=== PATIENT | female | born 1980 | race Caucasian/White ===

== ENCOUNTER 2018-09-01 07:50 | Emergency (ER) | payer MEDICAID ==
[2018-09-01] MEDS ORDERED: Pantoprazole 40 MG Vial IVPUSH ONE (08:14)
[2018-09-01] MEDS ORDERED: Sodium Chloride 0.9% 10 ML Syringe FLUSH PRN (08:14)
[2018-09-01] MEDS ORDERED: Famotidine 20 MG/2 ML SDV IVPUSH ONE (08:14)
[2018-09-01] MEDS ORDERED: Ondansetron 4 MG/2 ML SDV IVPUSH ONE (08:14)
[2018-09-01] MEDS ORDERED: Lactated Ringers 1,000 ML IV ONE (08:14)
--- NOTE | 2018-09-01 08:14 | EDM.PDOC ---
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 She also has a 10/10 bilateral frontal migraine headache. Note that her migraine headache started at about 12:30 p.m. yesterday with some secondary nausea and 2 episodes of emesis yesterday. Her abdominal complaints started early yesterday afternoon with fever of 103-104 at 01:30 a.m. this morning. She has not taken any medications for her symptoms to this point. Her abdominal complaints are similar to previous episodes of UTI, however she denies colic, gross hematuria, or true UTI symptoms. The patient denies any chest pain/pressure, heart flutter, dizziness, orthostasis, orthopnea , diaphoresis, paresthesias, recent decreased exercise tolerance, or any other anginal-type symptoms. No recent history of other abdominal pain, heartburn, diarrhea, melena, gross hematochezia, or any food intolerance, including fatty foods, etc., although she has not had a bowel movement for 3 days. The patient also denies any recent cough, wheezing, dyspnea, etc. known exposure to infection, food poisoning, etc. . Note current amenorrhea secondary to IUD. Stable mild whitish vaginal discharge consistent with yeast with no other significant vaginal drainage, spotting, etc. Onset: Gradual Onset Date: 08/30/18 Duration: Constant, Getting Worse Location: Reports: Head, Abdomen. Denies: Face, Neck, Chest, Back, Pelvis, Upper Extremity, Left, Upper Extremity, Right, Radiates to Quality: Reports: Same as Previous Episode, Sharp Severity: Severe Improves with: Reports: None Worsens with: Reports: None Context: Reports: Other (As above). Denies: Sick Contact, Trauma Associated Symptoms: Reports: Fever/Chills, Headaches, Nausea/Vomiting. 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 Denies: Allergic Rhinitis, Cataract, Glaucoma, Hard of Hearing, Macular Degeneration, Otitis Media, Retinal Detachment Other HEENT History: The patient wears glasses. Left-sided mastoiditis in July 1986. Cardiovascular History: Reports: Hypertension, Other (See Below). Denies: Afib , Aneurysm, Arrhythmia, Blood Clots/VTE/DVT, CAD, Heart Murmur, High Cholesterol , PVD, Syncope Other Cardiovascular History: Hypertension not under current medical therapy although previously. She does not know her cholesterol status. Respiratory History: Reports: Intubation, Previous. Denies: Asthma, Bronchitis , Recurrent, COPD, Intubation, Difficult, PE, Pneumothorax, Sleep Apnea Gastrointestinal History: Reports: None. Denies: Celiac Disease, Cholelithiasis , Chronic Constipation, Chronic Diarrhea, Gastritis, GERD, GI Bleed, Hiatal Hernia, Inflammatory Bowel Disease, Irritable Bowel Syndrome, Jaundice, Other ( See Below) Genitourinary History: Reports: None, UTI, Recurrent. Denies: Acute Renal Failure, Chronic Renal Insuffiency, Renal Calculus, Retention, Urinary, STD, Urinary Incontinence MERCHANDISING REPRESENTATIVE History: Reports: , Therapeutic : 5 Para: 4 LMP (Approximate): Other (See Below) Other MERCHANDISING REPRESENTATIVE History: Elective SAB during first trimester. Current amenorrhea secondary to IUD placement. Full term without complications during pregnancies or deliveries Musculoskeletal History: Reports: None. Denies: Amputation, Arthritis, Back Pain, Chronic, Fracture, Fibromyalgia, Gout, Muscular Dystrophy, Neck Pain, Chronic, Osteoarthritis, SLE Neurological History: Reports: Headaches, Chronic, Migraines. Denies: Cerebral Aneurysms, Concussion, CVA, Head Trauma, MS, Parkinson's, Seizure, TIA, Vertigo Psychiatric History: Denies: Abuse, Victim of, ADD, ADHD, Addiction, Anxiety, Depression, Psych Hospitalization(s), PTSD, Suicide Attempt, Suicidal Ideation Endocrine/Metabolic History: Reports: Hypothyroidism. Denies: Diabetes, Gestational, Diabetes, Type I, Diabetes, Type II, Diabetes Mellitus, Type 3c, IDDM, Multinodular Thyroid Hematologic History: Reports: None. Denies: Anemia, Blood Transfusion(s), Iron Deficiency Immunologic History: Reports: None. Denies: AIDS, HIV, SLE Oncologic (Cancer) History: Reports: Cervix, Other (See Below). Denies: Basal Cell Carcinoma, Breast, Hodgkin's Lymphoma, Leukemia, Lymphoma, Malignant Melanoma, Non-Hodgkin's Lymphoma, Ovarian, Squamous Cell Carcinoma, Uterine Other Oncologic History: Cervical dysplasia in 2012 requiring procedure as below. Dermatologic History: Reports: None. Denies: Eczema, Psoriasis - Infectious Disease History Infectious Disease History: Reports: Chicken Pox. Denies: C-Difficile, Measles , Meningitis, Mononucleosis, MRSA, Mumps, Pertussis (Whooping Cough), Rheumatic Fever, Rubella, Scarlet Fever, Shingles, TB, VRE - Past Surgical History Head Surgeries/Procedures: Reports: None HEENT Surgical History: Reports: Tonsillectomy, Other (See Below). Denies: Adenoidectomy, Cataract Surgery, Eye Surgery, Laser Surgery, LASIK, Myringotomy w Tube(s), Naso-Sinus Surgery, Oral Surgery Other HEENT Surgeries/Procedures: Tonsillectomy on 08/10/1999. Cardiovascular Surgical History: Reports: None. Denies: Varicose Respiratory Surgical History: Reports: None. Denies: Thoracentesis GI Surgical History: Denies: Appendectomy, Cholecystectomy, Colonoscopy, EGD, Hernia, Abdominal, Hernia, Inguinal, Hernia Repair/Other Female Surgical History: Reports: D&C, Dilitation & Evacuation, LEEP, Other ( See Below). Denies: Breast Biopsy, Hysterectomy, Oophorectomy, Salpingo- Oophorectomy, Tubal Ligation Other Female Surgeries/Procedures: IUD placement in 2014. LEEP in 2011. Endocrine Surgical History: Reports: None. Denies: Thyroid Biopsy Neurological Surgical History: Reports: None. Denies: C-Spine, Discectomy, Laminectomy, Lumbar Spine, Sacral Spine, Thoracic Spine, Vertebroplasty Musculoskeletal Surgical History: Reports: None. Denies: Arthroscopic Procedure , Carpal Tunnel, Ganglion Cyst, Joint Replacement, ORIF, Shoulder Surgery Oncologic Surgical History: Reports: None Dermatological Surgical History: Reports: None - Past Imaging History Past Imaging History: Reports: CAT Scan (CT of the head on 08/02/1986.) Social & Family History - Family History Cardiac: Reports: High Cholesterol, Hypertension, Other (See Below). Denies: Afib, Aneurysm, Arrhythmia, Blood Clots/VTE/DVT, Syncope Other Cardiac Family History: Maternal grandfather with possible unknown type of heart disease. Father with hypertension. Mother with hyperlipidemia Respiratory: Reports: COPD, Other (See Below). Denies: Asthma, Pneumothorax, Sleep Apnea Other Respiratory Family Hisory: Paternal grandmother with COPD with history of tobacco use. GI: Reports: None. Denies: Celiac Disease, Cholelithiasis, Colon Polyps, GERD, GI bleed, Inflammatory Bowel Disease, Irritable Bowel Syndrome, PUD Endocrine/Metabolic: Reports: Diabetes, type II, Hypothyroidism, IDDM, Other ( See Below) Other Endocrine/Metabolic Family History: Sister and father with hypothyroidism. Paternal grandfather with with IDDM. - Tobacco Use Smoking Status *Q: Current Every Day Smoker Tobacco Use Within Last Twelve Months: Cigarettes Years of Tobacco use: 19 Packs/Tins Daily: 1 Packs/Tins Daily Comment: Started Smoking at age 19. Used Tobacco, but Quit: No Smoking Cessation Information Provided To Patient: Yes Second Hand Smoke Exposure: No Second Hand Smoke Education Provided: No - Caffeine Use Caffeine Use: Reports: Energy Drinks (3 per week), Soda (1 soda every 2 weeks.) . Denies: Coffee, Tea - Alcohol Use Alcohol Use History: Yes Days Per Week of Alcohol Use: 3 Number of Drinks Per Day: 5 Number of Drinks Per Day Comment: Usually beer. No previous DWIs, problems with alcohol abuse, etc. Total Drinks Per Week: 15 Alcohol Use in Last Twelve Months: Yes - Recreational Drug Use Recreational Drug Use: No Drug Use in Last 12 Months: No Recreational Drug Type: Denies: Amphetamines (Speed), Cocaine, Heroin, Inhalants (Glues, Solvents, Aerosols), LSD (Acid), Marijuana/Hashish, Methamphetamine, Morphine, Oxycodone - Sexual History Sexual History: Reports: Sexually Active - Living Situation & Occupation Living situation: Reports: (2015, 4 children), with Family (Children) Occupation: Employed ([employer] in [place]) ED ROS GENERAL - Review of Systems Review Of Systems: ROS reveals no pertinent complaints other than HPI. ED EXAM, GENERAL - Physical Exam Exam: See Below Exam Limited By: No Limitations General Appearance: Alert, WD/WN, No Apparent Distress Eye Exam: Bilateral Eye: EOMI, Normal Inspection (Patient wearing glasses. No nystagmus), PERRL, Other (Borderline mild bilateral exophthalmos) Ears: Normal External Exam, Normal Canal, Hearing Grossly Normal, Normal TMs Nose: Normal Inspection, Normal Mucosa, No Blood Throat/Mouth: Normal Inspection, Normal Lips, Normal Teeth, Normal Gums, Normal Oropharynx, Normal Voice, No Airway Compromise. No: Dysphagia, Perioral Cyanosis Head: Atraumatic, Normocephalic. No: Facial Swelling, Facial Tenderness, Sinus Tenderness Neck: Normal Inspection, Supple, Non-Tender, Full Range of Motion. No: Lymphadenopathy (L), Lymphadenopathy (R), Thyromegaly Respiratory/Chest: No Respiratory Distress, Lungs Clear, Normal Breath Sounds, No Accessory Muscle Use, Chest Non-Tender. No: Pleural Rub, Retractions Cardiovascular: Normal Peripheral Pulses, No Edema, No Gallop, No JVD, No Murmur , No Rub, Tachycardia (Mild tachycardia with regular rhythm). No: Gallop/S3, Gallop/S4, Friction Rub Peripheral Pulses: 2+: Radial (L), Radial (R), Dorsalis Pedis (L), Dorsalis Pedis (R) GI/Abdominal: Normal Bowel Sounds, No Organomegaly, No Distention, No Abnormal Bruit, No Mass, Pelvis Stable, Tender (Mild bilateral lower quadrants). No: Guarding, Rigid, Rebound, Mass (Female) Exam: Deferred Rectal (Female) Exam: Deferred Back Exam: Normal Inspection, Full Range of Motion. No: CVA Tenderness (L), CVA Tenderness (R), Muscle Spasm Extremities: Normal Inspection, Normal Range of Motion, Non-Tender, No Pedal Edema, Normal Capillary Refill. No: Dolores's Sign Neurological: Alert, Oriented, CN II-XII Intact, Normal Cognition, Normal Gait, Normal Reflexes (Negative Babinski's), No Motor/Sensory Deficits Psychiatric: Normal Affect, Normal Mood Skin Exam: Warm, Dry, Intact, Normal Color, No Rash, Stud(s), Tattoo(s). No: Diaphoretic, Wound/Incision Lymphatic: No Adenopathy Course - Vital Signs Last Recorded V/S: Last Vital Signs Temp 37.4 C 09/01/18 07:55 Pulse 115 H 09/01/18 07:55 Resp 17 09/01/18 09:30 BP 155/74 H 09/01/18 09:30 Pulse Ox 100 09/01/18 09:30 Vital Signs - 24 hr 09/01/18 09/01/18 09/01/18 07:55 08:08 08:30 Temperature [ 37.4 C Temporal] Pulse, 115 H Peripheral [ Pulse Oximetry] Respiratory 18 20 20 Rate Blood Pressure 148/93 H 145/82 H 157/90 H [Right Upper Arm] O2 Sat by Pulse 100 100 100 Oximetry 09/01/18 09/01/18 09/01/18 09:00 09:15 09:30 Temperature [ Temporal] Pulse, Peripheral [ Pulse Oximetry] Respiratory 19 18 17 Rate Blood Pressure 155/77 H 149/76 H 155/74 H [Right Upper Arm] O2 Sat by Pulse 100 100 100 Oximetry - Orders/Labs/Meds Orders: Active Orders 24 hr Category Date Time Status Cardiac Monitoring [RC] . DIRECTED Care 09/01/18 08:16 Active Influenza Vaccine Charge [RC] .DISCHARGE Care 09/01/18 09:11 Active Peripheral IV Care [RC] . DIRECTED Care 09/01/18 08:14 Active Nothing Per Oral Diet [DIET] Diet 09/01/18 Breakfast Active Abdomen Series w Chest 1V [CR] Stat Exams 09/01/18 08:14 Taken CULTURE BLOOD [BC] Stat Lab 09/01/18 08:26 Received CULTURE BLOOD [BC] Stat Lab 09/01/18 08:32 Received CULTURE URINE [RM] Stat Lab 09/01/18 08:14 Ordered Sodium Chloride 0.9% [Saline Flush] Med 09/01/18 08:14 Active 10 ml FLUSH ASDIRECTED PRN Blood Culture x2 Reflex Set [OM.PC] Urgent Oth 09/01/18 08:14 Ordered Obtain Past Medical Record [OM.PC] Urgent Oth 09/01/18 08:14 Active Peripheral IV Insertion Adult [OM.PC] Stat Oth 09/01/18 08:14 Ordered Resuscitation Status Stat Resus Stat 09/01/18 08:14 Ordered Medication Orders Sodium Chloride (Saline Flush) 10 ml FLUSH ASDIRECTED PRN PRN Reason: Keep Vein Open Last Admin: 09/01/18 08:28 Dose: 10 ml Labs: Laboratory Tests 09/01/18 09/01/18 09/01/18 Range/Units 08:15 08:26 08:26 WBC 9.6 (4.0-10.2) K/uL RBC 4.53 (3.77-5.09) M/uL Hgb 15.1 (11.7-15.5) g/dL Hct 42.6 (34.0-46.0) % MCV 94.0 (84.0-98.0) fL MCH 33.3 (28.2-33.3) pg MCHC 35.4 (31.7-36.0) g/dL RDW 12.1 (11.2-14.1) % Plt Count 163 D (150-350) K/uL Neut % (Auto) 87.7 H (45.0-80.0) % Lymph % (Auto) 4.8 L (10.0-50.0) % [place] % (Auto) 7.3 (2.0-14.0) % Eos % (Auto) 0.0 (0.0-5.0) % Baso % (Auto) 0.2 (0.0-2.0) % Neut # (Auto) 8.39 H (1.40-7.00) K/uL Lymph # (Auto) 0.46 L (0.50-3.50) K/uL [place] # (Auto) 0.70 (0.00-1.00) K/uL Eos # (Auto) 0.00 (0.00-0.50) K/uL Baso # (Auto) 0.02 (0.00-0.20) K/uL PT (9.5-12.0) SEC INR APTT (21.0-31.3) SEC Sodium (136-145) mmol/L Potassium (3.5-5.1) mmol/L Chloride (98-107) mmol/L Carbon Dioxide (21.0-32.0) mmol/L BUN (7-18) mg/dL Creatinine (0.51-1.17) mg/dL Est Cr Clr Drug Dosing mL/min Estimated GFR (MDRD) mL/min Glucose (74-106) mg/dL Lactic Acid (0.4-2.0) mmol/L Uric Acid (2.6-7.2) mg/dL Calcium (8.5-10.1) mg/dL Magnesium (1.8-2.4) mg/dL Total Bilirubin (0.2-1.0) mg/dL AST (15-37) U/L ALT (12-78) U/L Alkaline Phosphatase (46-116) IU/L Total Protein (6.4-8.2) g/dL Albumin (3.4-5.0) g/dL Amylase 26 (25-115) U/L Lipase (73-393) U/L HCG, Qual (NEGATIVE) Specimen Type Urinvoid Urine Color Yellow Urine Appearance Slightly cloudy Urine pH 5.5 (5.0-9.0) Ur Specific [place] <= 1.005 (1.005-1.030) Urine Protein Negative (NEGATIVE) mg/dL Urine Glucose (UA) Negative (NEGATIVE) mg/dL Urine Ketones 40 H (NEGATIVE) mg/dL Urine Occult Blood Small H (NEGATIVE) Urine Nitrite Positive H (NEGATIVE) Urine Bilirubin Negative (NEGATIVE) Urine Urobilinogen 0.2 (0.2-1.0) E.U./dL Ur Leukocyte Esterase Small H (NEGATIVE) Urine RBC Not seen /HPF Urine WBC 10-20 H /HPF Ur Epithelial Cells Moderate H /LPF Urine Bacteria Many H (NONE TO FEW) /HPF 09/01/18 09/01/18 09/01/18 Range/Units 08:26 08:26 08:26 WBC (4.0-10.2) K/uL RBC (3.77-5.09) M/uL Hgb (11.7-15.5) g/dL Hct (34.0-46.0) % MCV (84.0-98.0) fL MCH (28.2-33.3) pg MCHC (31.7-36.0) g/dL RDW (11.2-14.1) % Plt Count (150-350) K/uL Neut % (Auto) (45.0-80.0) % Lymph % (Auto) (10.0-50.0) % [place] % (Auto) (2.0-14.0) % Eos % (Auto) (0.0-5.0) % Baso % (Auto) (0.0-2.0) % Neut # (Auto) (1.40-7.00) K/uL Lymph # (Auto) (0.50-3.50) K/uL [place] # (Auto) (0.00-1.00) K/uL Eos # (Auto) (0.00-0.50) K/uL Baso # (Auto) (0.00-0.20) K/uL PT 10.7 (9.5-12.0) SEC INR 1.0 APTT 31.6 H (21.0-31.3) SEC Sodium 132 L (136-145) mmol/L Potassium 3.1 L (3.5-5.1) mmol/L Chloride 95 L (98-107) mmol/L Carbon Dioxide 26.1 (21.0-32.0) mmol/L BUN 5 L (7-18) mg/dL Creatinine 0.82 (0.51-1.17) mg/dL Est Cr Clr Drug Dosing 75.01 mL/min Estimated GFR (MDRD) > 60 mL/min Glucose 103 (74-106) mg/dL Lactic Acid 0.8 (0.4-2.0) mmol/L Uric Acid 2.7 (2.6-7.2) mg/dL Calcium 9.1 (8.5-10.1) mg/dL Magnesium 1.5 L (1.8-2.4) mg/dL Total Bilirubin 0.6 (0.2-1.0) mg/dL AST 14 L (15-37) U/L ALT 24 (12-78) U/L Alkaline Phosphatase 58 (46-116) IU/L Total Protein 8.0 (6.4-8.2) g/dL Albumin 4.0 (3.4-5.0) g/dL Amylase (25-115) U/L Lipase 72 L (73-393) U/L HCG, Qual (NEGATIVE) Specimen Type Urine Color Urine Appearance Urine pH (5.0-9.0) Ur Specific [place] (1.005-1.030) Urine Protein (NEGATIVE) mg/dL Urine Glucose (UA) (NEGATIVE) mg/dL Urine Ketones (NEGATIVE) mg/dL Urine Occult Blood (NEGATIVE) Urine Nitrite (NEGATIVE) Urine Bilirubin (NEGATIVE) Urine Urobilinogen (0.2-1.0) E.U./dL Ur Leukocyte Esterase (NEGATIVE) Urine RBC /HPF Urine WBC /HPF Ur Epithelial Cells /LPF Urine Bacteria (NONE TO FEW) /HPF 09/01/18 Range/Units 08:26 WBC (4.0-10.2) K/uL RBC (3.77-5.09) M/uL Hgb (11.7-15.5) g/dL Hct (34.0-46.0) % MCV (84.0-98.0) fL MCH (28.2-33.3) pg MCHC (31.7-36.0) g/dL RDW (11.2-14.1) % Plt Count (150-350) K/uL Neut % (Auto) (45.0-80.0) % Lymph % (Auto) (10.0-50.0) % [place] % (Auto) (2.0-14.0) % Eos % (Auto) (0.0-5.0) % Baso % (Auto) (0.0-2.0) % Neut # (Auto) (1.40-7.00) K/uL Lymph # (Auto) (0.50-3.50) K/uL [place] # (Auto) (0.00-1.00) K/uL Eos # (Auto) (0.00-0.50) K/uL Baso # (Auto) (0.00-0.20) K/uL PT (9.5-12.0) SEC INR APTT (21.0-31.3) SEC Sodium (136-145) mmol/L Potassium (3.5-5.1) mmol/L Chloride (98-107) mmol/L Carbon Dioxide (21.0-32.0) mmol/L BUN (7-18) mg/dL Creatinine (0.51-1.17) mg/dL Est Cr Clr Drug Dosing mL/min Estimated GFR (MDRD) mL/min Glucose (74-106) mg/dL Lactic Acid (0.4-2.0) mmol/L Uric Acid (2.6-7.2) mg/dL Calcium (8.5-10.1) mg/dL Magnesium (1.8-2.4) mg/dL Total Bilirubin (0.2-1.0) mg/dL AST (15-37) U/L ALT (12-78) U/L Alkaline Phosphatase (46-116) IU/L Total Protein (6.4-8.2) g/dL Albumin (3.4-5.0) g/dL Amylase (25-115) U/L Lipase (73-393) U/L HCG, Qual Negative (NEGATIVE) Specimen Type Urine Color Urine Appearance Urine pH (5.0-9.0) Ur Specific [place] (1.005-1.030) Urine Protein (NEGATIVE) mg/dL Urine Glucose (UA) (NEGATIVE) mg/dL Urine Ketones (NEGATIVE) mg/dL Urine Occult Blood (NEGATIVE) Urine Nitrite (NEGATIVE) Urine Bilirubin (NEGATIVE) Urine Urobilinogen (0.2-1.0) E.U./dL Ur Leukocyte Esterase (NEGATIVE) Urine RBC /HPF Urine WBC /HPF Ur Epithelial Cells /LPF Urine Bacteria (NONE TO FEW) /HPF Urine specimen set up for culture and sensitivity. Meds: Medications Generic Name Dose Route Start Last Admin Trade Name Freq PRN Reason Stop Dose Admin Sodium Chloride 10 ml 09/01/18 08:14 09/01/18 08:28 Saline Flush FLUSH 10 ml ASDIRECTED PRN Administration Keep Vein Open Discontinued Medications Generic Name Dose Route Start Last Admin Trade Name Freq PRN Reason Stop Dose Admin Famotidine 40 mg 09/01/18 08:14 09/01/18 08:27 Pepcid IVPUSH 09/01/18 08:15 40 mg ONETIME ONE Administration Lactated Ringer's 1,000 mls @ 999 mls/hr 09/01/18 08:14 09/01/18 08:27 Ringers, Lactated IV 09/01/18 09:14 999 mls/hr .BOLUS ONE Administration Influenza Virus Vaccine 1 each 09/01/18 09:11 Pharmacy To Dose - Influenza Vaccine IM 09/01/18 09:12 ONETIME ONE Influenza Virus Vaccine 60 mcg 09/01/18 10:00 Fluzone Quad [id number] Syringe IM 09/01/18 10:01 .ONCE ONE Magnesium Oxide 400 mg 09/01/18 09:10 09/01/18 09:31 Magnesium Oxide PO 09/01/18 09:11 400 mg ONETIME ONE Administration Ondansetron HCl 4 mg 09/01/18 08:14 09/01/18 08:27 Zofran IVPUSH 09/01/18 08:15 4 mg ONETIME ONE Administration Pantoprazole Sodium 40 mg 09/01/18 08:14 09/01/18 08:27 Protonix Iv IVPUSH 09/01/18 08:15 40 mg ONETIME ONE Administration Potassium Chloride 40 meq 09/01/18 09:10 09/01/18 09:31 Klor-Con M20 PO 09/01/18 09:11 40 meq ONETIME ONE Administration - Radiology Interpretation Free Text/Narrative:: telemetry monitor initially showed sinus tachycardia in the 110s with no ectopy or arrhythmia. Improvement of heart rate to the 100s after IV fluids given in the emergency room. Departure - Departure Time of Disposition: 10:12 Disposition: Home, Self-Care 01 Condition: Good Clinical Impression: Hypothyroidism (acquired), Tobacco abuse counseling Migraine Qualifiers: Migraine type: without aura Status migrainosus presence: without status migrainosus Intractability: not intractable Qualified Code(s): G43.009 - Migraine without aura, not intractable, without status migrainosus Urinary tract infection Qualifiers: Urinary tract infection type: acute cystitis Hematuria presence: without hematuria Qualified Code(s): N30.00 - Acute cystitis without hematuria - Discharge Information *PRESCRIPTION DRUG MONITORING PROGRAM REVIEWED*: Not Applicable *COPY OF PRESCRIPTION DRUG MONITORING REPORT IN PATIENT [place]RA: Not Applicable Prescriptions: Nitrofurantoin Monohyd/M-Cryst [Macrobid 100 mg Capsule] 100 mg PO BID #20 capsule Instructions: Urinary Tract Infection, Adult, [id number] Referrals: Erinn Lopez, RESEARCH MANUFACTURING OPERATOR [Primary Care Provider] - Forms: ED Department Discharge, ED Return to Work/School Form Additional Instructions: 1. Followup with your regular provider in 10-14 days as directed with recommended repeat urine tests as below, TSH, free T3, free T4, magnesium level , and basic metabolic panel.. Bring these discharge instructions with you to that visit. 2. Urine tests should be repeated at follow up visit with possible repeat urine culture,etc. at that time. Today's urine culture is pending with results in about 2-3 days. We will call you, if we need to change your therapy. 3. Tylenol 650 mg by mouth every 4 hours and/or OTC ibuprofen 2-3 tabs by mouth every 6 hours with food as directed./needed. You may stagger these medications for 48-72 hours only, which essentially means that you are receiving a pain medication about every 2 hours. 4. Work excuse- See Form 5. [place] diet including encouragement of oral fluids such as sports drinks, etc. for 24-48 hours as directed. Advance to regular diet as tolerated thereafter. 6. Ice packs to head and neck, dark and quiet room, etc. as directed until headache resolves. 7. Discuss recurrent migraine headaches with your regular provider at follow- up with consideration of further workup, including CT scan of the head, preventative medicine, etc. as discussed. 8. Encourage oral fluids, including daily cranberry use, etc.as directed. 9. Stop all tobacco use PARESH as directed/per provided information and consider contacting Quit LIne, etc.. 10. Immediately after this visit verify that your cellular telephone's voicemail has been activated and is empty. Also verify that your home telephone 's answering machine is operating properly and has space to receive messages. Note that it is sometimes necessary for us to be able to contact you at a later date to discuss your medical care. 11. Please remember that we are ALWAYS here for you and want to answer any questions you may have. Feel free to call the hospital any time and we call you back PARESH. - Problem List & Annotations (1) Urinary tract infection SNOMED Code(s): 86452145 Code(s): N39.0 - URINARY TRACT INFECTION, SITE NOT SPECIFIED Status: Acute Priority: High Current Visit: No Onset Date: ~09/01/18 Annotation/ Comment:: Initiate Macrobid therapy at discharge. IV fluids given in the emergency room secondary to mild tachycardia and recent fever with improvement as above. Urine specimen set up for culture and sensitivity. Patient counseled on avoidance of oral intercourse, etc. with consideration of further workup, etc. depending on her clinical course. Close follow-up by regular provider. She did not wish to have Pyridium. Qualifiers: Urinary tract infection type: acute cystitis Hematuria presence: without hematuria Qualified Code(s): N30.00 - Acute cystitis without hematuria (2) Hypothyroidism (acquired) SNOMED Code(s): 671704372 Code(s): E03.9 - HYPOTHYROIDISM, UNSPECIFIED Status: Chronic Priority: Medium Current Visit: No Annotation/Comment:: Currently under therapy over problems regulating her therapy by her regular provider with elevated TSH one month ago. She is scheduled for a repeat TSH later this month with recommendation of additional free T3 and free T4. Note borderline exophthalmus. Continue to observe closely by her regular provider. (3) Migraine SNOMED Code(s): 44729416 Code(s): G43.909 - MIGRAINE, UNSP, NOT INTRACTABLE, WITHOUT STATUS MIGRAINOSUS Status: Acute Priority: High Current Visit: No Onset Date: 08/31/18 Annotation/Comment:: Mild headache exacerbation as above. Currently gets her headaches on an every 2 week basis with no previous neurological consultation, CT scan of the head, etc. Continue to observe closely by her regular provider with consideration of prophylactic therapy, workup, etc.. Symptomatic relief for now with no IV Toradol therapy for now per patient's request. Qualifiers: Migraine type: without aura Status migrainosus presence: without status migrainosus Intractability: not intractable Qualified Code(s): G43.009 - Migraine without aura, not intractable, without status migrainosus (4) Tobacco abuse counseling SNOMED Code(s): 011309048, 733671295, 187416503 Code(s): Z71.6 - TOBACCO ABUSE COUNSELING Status: Chronic Priority: Medium Current Visit: No Annotation/Comment:: Tobacco cessation strongly encouraged with patient already having tobacco cessation information at home. (5) Hypokalemia SNOMED Code(s): 71204743 Code(s): E87.6 - HYPOKALEMIA Status: Acute Priority: Medium Current Visit: No Onset Date: 09/01/18 Annotation/Comment:: Lactated Ringer's given in the emergency room with additional hyponatremia and additional oral potassium chloride prior to discharge. (6) Hypomagnesemia SNOMED Code(s): 280820636 Code(s): E83.42 - HYPOMAGNESEMIA Status: Acute Priority: Medium Current Visit: No Onset Date: 09/01/18 Annotation/Comment:: Magnesium oxide given in the emergency room. Close follow-up by regular provider. Observe for now with sports drinks, etc. encouraged as per discharge instructions. - Problem List Review Problem List Initiated/Reviewed/Updated: Yes - My Orders Last 24 Hours: My Active Orders 09/01/18 08:14 Peripheral IV Care [RC] . DIRECTED Abdomen Series w Chest 1V [CR] Stat CULTURE URINE [RM] Stat Sodium Chloride 0.9% [Saline Flush] 10 ml FLUSH ASDIRECTED PRN Blood Culture x2 Reflex Set [OM.PC] Urgent Obtain Past Medical Record [OM.PC] Urgent Peripheral IV Insertion Adult [OM.PC] Stat Resuscitation Status Stat 09/01/18 08:16 Cardiac Monitoring [RC] . DIRECTED 09/01/18 08:26 CULTURE BLOOD [BC] Stat 09/01/18 08:32 CULTURE BLOOD [BC] Stat 09/01/18 09:11 Influenza Vaccine Charge [RC] .DISCHARGE 09/01/18 Breakfast Nothing Per Oral Diet [DIET] - Assessment/Plan Last 24 Hours: My Active Orders 09/01/18 08:14 Peripheral IV Care [RC] . DIRECTED Abdomen Series w Chest 1V [CR] Stat CULTURE URINE [RM] Stat Sodium Chloride 0.9% [Saline Flush] 10 ml FLUSH ASDIRECTED PRN Blood Culture x2 Reflex Set [OM.PC] Urgent Obtain Past Medical Record [OM.PC] Urgent Peripheral IV Insertion Adult [OM.PC] Stat Resuscitation Status Stat 09/01/18 08:16 Cardiac Monitoring [RC] . DIRECTED 09/01/18 08:26 CULTURE BLOOD [BC] Stat 09/01/18 08:32 CULTURE BLOOD [BC] Stat 09/01/18 09:11 Influenza Vaccine Charge [RC] .DISCHARGE 09/01/18 Breakfast Nothing Per Oral Diet [DIET] Assessment:: As above Plan: As above. Extensive precautions were given to the patient, who is in agreement with the treatment plan. See Patient Instructions for further treatment and plan. Influenza booster given prior to discharge.
[2018-09-01 08:55] LABS: CHLORIDE,CL 95 mmol/L (98-107); SODIUM,NA 132 mmol/L (136-145)
[2018-09-01] MEDS ORDERED: Potassium Chloride 20 MEQ Tab.ER PO ONE (09:10)
[2018-09-01] MEDS ORDERED: Magnesium Oxide 400 MG Tab PO ONE (09:10)
== END 2018-09-01 10:10 | disposition home or self-care (01) ==
LOC: LL.ED 07:50
DX: G43.009 Migraine without aura, not intractable, without status migrainosus (principal); N30.00 Acute cystitis without hematuria; I10 Essential (primary) hypertension; E03.9 Hypothyroidism, unspecified; Z71.6 Tobacco abuse counseling; Z88.0 Allergy status to penicillin; F17.210 Nicotine dependence, cigarettes, uncomplicated
CPT/HCPCS: 36415; 74022; 80053; 81001; 82150; 83605; 83690; 83735; 84550; 84703; 85025; 85610; 85730; 87040; 87086; 87088; 87186; 90686; 96361; 96374; 96375; 99284-25; A9270-GY; C9113; G0008; J2405; J3490; J7120

== ENCOUNTER 2018-11-08 09:37 | Emergency (ER) | payer MEDICAID ==
--- NOTE | 2018-11-08 10:15 | EDM.PDOC ---
ED HPI GENERAL MEDICAL PROBLEM - General Chief Complaint: General Stated Complaint: Hematoma Time Seen by Provider: 11/08/18 09:50 Source of Information: Reports: Patient History Limitations: Reports: No Limitations - History of Present Illness INITIAL COMMENTS - FREE TEXT/NARRATIVE: Patient is [id number] who fell about 2 weeks ago again last night she hit her left thigh causing a huge hematoma she came in with severe pain 10 out of 10. 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 Left-sided mastoiditis in July 1986. Cardiovascular History: Reports: Hypertension, Other (See Below) Other Cardiovascular History: Hypertension not under current medical therapy although previously. She does not know her cholesterol status. 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 Current amenorrhea secondary to IUD placement. Full term without complications during pregnancies or deliveries Musculoskeletal History: Reports: None Neurological History: Reports: Headaches, Chronic, Migraines Endocrine/Metabolic History: Reports: Hypothyroidism Hematologic History: Reports: None Immunologic History: Reports: None Oncologic (Cancer) History: Reports: Cervix, Other (See Below) Other Oncologic History: Cervical dysplasia in 2011 requiring procedure as below. Dermatologic History: Reports: None - Infectious Disease History Infectious Disease History: Reports: Chicken Pox - Past Surgical History Head Surgeries/Procedures: Reports: None HEENT Surgical History: Reports: Tonsillectomy, Other (See Below) Other HEENT Surgeries/Procedures: Tonsillectomy on 08/10/1999. Cardiovascular Surgical History: Reports: None Respiratory Surgical History: Reports: None Female Surgical History: Reports: D&C, Dilitation & Evacuation, LEEP, Other ( See Below) Other Female Surgeries/Procedures: IUD placement in 2014. LEEP in 2011. Endocrine Surgical History: Reports: None Neurological Surgical History: Reports: None Musculoskeletal Surgical History: Reports: None Oncologic Surgical History: Reports: None Dermatological Surgical History: Reports: None - Past Imaging History Past Imaging History: Reports: CAT Scan (CT of the head on 08/02/1986.) Social & Family History - Family History Cardiac: Reports: High Cholesterol, Hypertension, Other (See Below) Other Cardiac Family History: Maternal grandfather with possible unknown type of heart disease. Father with hypertension. Mother with hyperlipidemia Respiratory: Reports: COPD, Other (See Below) Other Respiratory Family Hisory: Paternal grandmother with COPD with history of tobacco use. GI: Reports: None Endocrine/Metabolic: Reports: Diabetes, type II, Hypothyroidism, IDDM, Other ( See Below) Other Endocrine/Metabolic Family History: Sister and father with hypothyroidism. Paternal grandfather with with IDDM. - Tobacco Use Smoking Status *Q: Current Every Day Smoker Years of Tobacco use: 21 Packs/Tins Daily: 0.5 - Caffeine Use Caffeine Use: Reports: Soda - Recreational Drug Use Recreational Drug Use: No - Sexual History Sexual History: Reports: Sexually Active - Living Situation & Occupation Living situation: Reports: (2014, 4 children), with Family (Children) Occupation: Employed ([employer] in [place]) ED ROS GENERAL - Review of Systems Review Of Systems: See Below Constitutional: Reports: No Symptoms HEENT: Reports: No Symptoms Respiratory: Reports: No Symptoms Cardiovascular: Reports: No Symptoms Endocrine: Reports: No Symptoms GI/Abdominal: Reports: No Symptoms : Reports: No Symptoms Musculoskeletal: Reports: No Symptoms Skin: Reports: No Symptoms Neurological: Reports: No Symptoms Psychiatric: Reports: No Symptoms Hematologic/Lymphatic: Reports: No Symptoms Immunologic: Reports: No Symptoms ED EXAM, GENERAL - Physical Exam Exam: See Below Exam Limited By: No Limitations General Appearance: Alert, WD/WN, No Apparent Distress Ears: Normal External Exam, Normal Canal, Hearing Grossly Normal, Normal TMs Ear Exam: Bilateral Ear: Auricle Normal, Canal Normal, TM normal Nose: Normal Inspection, Normal Mucosa, No Blood Throat/Mouth: Normal Inspection, Normal Lips, Normal Teeth, Normal Gums, Normal Oropharynx, Normal Voice, No Airway Compromise Head: Atraumatic, Normocephalic Neck: Normal Inspection, Supple, Non-Tender, Full Range of Motion Respiratory/Chest: No Respiratory Distress, Lungs Clear, Normal Breath Sounds, No Accessory Muscle Use, Chest Non-Tender Cardiovascular: Normal Peripheral Pulses, Regular Rate, Rhythm, No Edema, No Gallop, No JVD, No Murmur, No Rub GI/Abdominal: Normal Bowel Sounds, Soft, Non-Tender, No Organomegaly, No Distention, No Abnormal Bruit, No Mass (Female) Exam: Deferred Rectal (Female) Exam: Deferred Back Exam: Normal Inspection, Full Range of Motion, NT Extremities: Limited Range of Motion (Left leg), Increased Warmth, Other Neurological: Alert, Oriented, CN II-XII Intact, Normal Cognition, Normal Gait, Normal Reflexes, No Motor/Sensory Deficits Psychiatric: Normal Affect, Normal Mood Skin Exam: Warm, Dry, Intact, Normal Color, No Rash Lymphatic: No Adenopathy Course - Vital Signs Last Recorded V/S: Last Vital Signs Temp 97.8 F 11/08/18 09:57 Pulse 103 H 11/08/18 09:57 Resp 16 11/08/18 09:57 BP 136/85 11/08/18 09:57 Pulse Ox 99 11/08/18 09:57 - Orders/Labs/Meds Orders: Active Orders 24 hr Category Date Time Status Femur Min 2V Lt [CR] Stat Exams 11/08/18 10:16 Ordered Departure - Departure Time of Disposition: 10:35 Disposition: Home, Self-Care 01 Condition: Fair Clinical Impression: Hematoma - Discharge Information *PRESCRIPTION DRUG MONITORING PROGRAM REVIEWED*: Yes *COPY OF PRESCRIPTION DRUG MONITORING REPORT IN PATIENT LIBRA: Yes Referrals: Erinn Lopez MACHINE SHOP LEAD MAN [Primary Care Provider] - Forms: ED Department Discharge Additional Instructions: Patient was seen huge hematoma left thigh will ice it for the next 48 hours and I&D hematoma in the Saturday or Saturday we'll give her Tylenol 3 for pain control 10 tablets given in the ER to take 1 every 6 hours for pain - My Orders Last 24 Hours: My Active Orders 11/08/18 10:16 Femur Min 2V Lt [CR] Stat - Assessment/Plan Last 24 Hours: My Active Orders 11/08/18 10:16 Femur Min 2V Lt [CR] Stat
== END 2018-11-08 10:35 | disposition home or self-care (01) ==
LOC: LL.ED 09:37
DX: S70.12XA Contusion of left thigh, initial encounter (principal); I10 Essential (primary) hypertension; E03.9 Hypothyroidism, unspecified; F17.210 Nicotine dependence, cigarettes, uncomplicated; W22.8XXA Striking against or struck by other objects, initial encounter; Z88.0 Allergy status to penicillin; Z79.899 Other long term (current) drug therapy
CPT/HCPCS: 99283-25